=== PATIENT | female | born 1945 | race Caucasian/White ===

== ENCOUNTER 2017-07-25 12:58 | Day surgery (SDC) | payer MEDICARE ==
[~2017-07-25 12:58] MED LIST: CLOB-14 TOPICAL; EXEM25TA; EXTR500C PO; FENO50TA PO; HYDR-3516 PO; LEVA750T9 PO; LEVO.075 PO; LEVO75TA3 PO; MAGN250T11 PO; NEXI20CA PO; VITA100021 SL; XARE20TA PO
[2017-07-25] MEDS ORDERED: IOHEXOL 350 MG/ML 50 ML BTL (for RAD DIAG) OTHER ONE (12:59)
[2017-07-25 13:33] VITALS: BP 139/71; PULSE 75; RESP 16; TEMP 98.6; O2SAT 93
[2017-07-25] MEDS ORDERED: EXEM25TA PO (13:44)
[2017-07-25] MEDS ORDERED: MAGN1PIG IV (13:44)
[2017-07-25 15:36] VITALS: BP 139/71; PULSE 75; RESP 16; O2SAT 93
--- NOTE | 2017-07-25 16:38 | RADRPT ---
EXAM DATE/TIME: 07/25/2017 14:11 [place] COMPARISON: [id number] PLCMT, POWERPORT, W US, LEFT, May 15, 2016, 11:56. INDICATIONS : Patient with history of peritoneal carcinoma in need of Hqihm-w-Ndon evaluation. MEDICAL HISTORY : HLD, Ovarian cancer, Hypothyroidism, Thrombus related to port, Small bowel obstruction, Anemia, Centr al venous occlusion SURGICAL HISTORY : Peritoneal biopsy, Port placement and removal, Cholecystectomy, Intestinal surgery to debulk peritone al cancer ENCOUNTER: Subsequent ACUITY: > 1 year PAIN SCORE: 0/10 FLUORO TIME: 0.2 minutes IMAGE SERIES: 1 CONTRAST: 5 cc Omnipaque (iohexol) 350 PROCEDURE : 1. Access of Xjzlcz-h-[id number]. 2. Port patency injection. The risks, benefits and alternatives to the procedure were explained and verbal and written consent w as obtained. The patient was placed supine. The port was prepped in sterile fashion. Full sterile t echnique was used, including cap, mask, sterile gloves and gown, and a large sterile sheet. Hand hyg iene and 2% chlorhexidine prep was utilized per protocol for cutaneous antisepsis with appropriate dr y time for site. The previously placed port was accessed and positive contrast was injected for evaluation. The left s ubclavian port is stable in position with tip in the medial subclavian vein. 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 SVC and central subclavi an veins are not demonstrated. Port was then flushed and locked with appropriate volume and strength of heparinized and a CONCLUSION: 1. Stable patent Left subclavian Cbrgyx-v-Gili with tip in the medial subclavian vein with stable fin dings of chronic central venous occlusion. There are no apparent viable upper extremity central venous access options. Inability to withdraw fro m the port is likely due to small caliber of the subclavian and side walling of the catheter tip. Oth erwise, the port should be adequate for use. Nagi Koenig MD on July 25, 2017 at 16:29 Board Certified Radiologist. This report was verified electronically.
== END 2017-07-25 15:30 | disposition home or self-care (01) ==
LOC: HROP 12:58 → HRIP 13:00 → HROP 15:30
PROVIDERS: ATTEND Surgery Vascular Surgery
DX: T85.628A Displacement of other specified internal prosthetic devices, implants and grafts, initial encounter (principal); I82.891 Chronic embolism and thrombosis of other specified veins
CPT/HCPCS: 36598; J1642; Q9967